=== PATIENT | female | born 1960 | race African-American/Black ===

== ENCOUNTER → 2016-04-29 | Outpatient (CLI) | payer BC ==
[~2016-04-29] MED LIST: ISOVUE-370 76% 100ML VIAL (Q9967) As Ordered ONE
--- NOTE | 2016-04-29 16:27 | REP ---
CT HEAD WITHOUT AND WITH CONTRAST: HISTORY: Dizziness. CONTRAST: Isovue-370 75 mL. There is no intraparenchymal hemorrhage, mass or midline shift. There is no abnormal enhancement. The ventricular system is normal in appearance. There is no extracerebral collection. There is a possible 3 mm aneurysm involving the proximal right middle cerebral artery. The visualized sinuses are clear. IMPRESSION: There is a possible 3 mm right middle cerebral artery aneurysm. MRA of the brain is recommended for further evaluation. Signed by Andriy Flores MD 04/29/2016 04:31 P
== END ==
LOC: M RAD 10:52
PROVIDERS: ATTEND Physician Assistant
DX: R42 Dizziness and giddiness (principal); R93.0 Abnormal findings on diagnostic imaging of skull and head, not elsewhere classified
CPT/HCPCS: 70470; Q9967

== ENCOUNTER → 2016-05-05 | Outpatient (CLI) | payer BC ==
--- NOTE | 2016-05-06 08:29 | REP ---
MRA BRAIN WITHOUT CONTRAST: HISTORY: Dizziness. 3D [id number] MR angiography was performed at the level of the [place]. An aneurysm is present arising from the right middle cerebral artery trifurcation. The aneurysm measures 3 x 2.5 mm. The aneurysm projects inferior from the right middle cerebral artery trifurcation. There is no other aneurysm or arteriovenous malformation. There are no atherosclerotic lesions. The P1 segments of the posterior cerebral arteries are hypoplastic. Major intracranial vessels are patent. The vertebral arteries are equal in size. 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 Signed by Andriy Flores MD 05/06/2016 08:34 A
--- NOTE | 2016-05-06 08:32 | REP ---
MRI BRAIN WITHOUT AND WITH CONTRAST: HISTORY: Dizziness. CONTRAST: ProHance 19 mL. COMPARISON: CT 04/29/2016. Several punctate areas of increased signal intensity on T2-weighted images are present in the periventricular and subcortical white matter. This represents small vessel ischemic disease. There is no intraparenchymal hemorrhage, infarct, mass or midline shift. There is no abnormal enhancement. The ventricular system is normal in appearance. There is no extracerebral collection. IMPRESSION: Minimal small vessel ischemic disease. Signed by Andriy Flores MD 05/06/2016 08:34 A
== END ==
LOC: M RAD 17:19
PROVIDERS: ATTEND Physician Assistant
DX: R42 Dizziness and giddiness (principal)
CPT/HCPCS: 70544; 70553; A9576

== ENCOUNTER → 2016-05-12 | Outpatient (CLI) | payer BC ==
[2016-05-12 11:31] LABS: BASO # 0.1 K/mm3 (0.0-0.2); BASO % 1.4 % (0.0-1.0); EOS # 0.1 K/mm3 (0.0-0.50); EOS % 1.4 % (0.0-3.0); LARGE UNSTAINED CELL # 0.1 K/mm3 (0.0-0.4); LARGE UNSTAINED CELL % 1.8 % (0.0-4.0); LYMPH # 1.4 K/mm3 (1.5-4.5); LYMPH % 30.5 % (24.0-44.0); MEAN CORPUSCULAR HEMOGLOBIN 27.7 pg (27.0-33.0); MEAN CORPUSCULAR HGB CONC 33.2 g/dl (32.0-36.5); MEAN CORPUSCULAR VOLUME 83.5 fl (80.0-96.0); MONO # 0.3 K/mm3 (0.0-0.8); MONO % 6.2 % (0.0-5.0); NEUTROPHILS # 2.6 K/mm3 (1.8-7.7); NEUTROPHILS % 58.7 % (36.0-66.0); PLATELET COUNT, AUTOMATED 262 k/mm3 (150-450); RED CELL DISTRIBUTION WIDTH 15.3 % (11.5-14.5); WHITE BLOOD COUNT 4.4 K/mm3 (4.0-10.0)
[2016-05-12 12:02] LABS: ERYTHROCYTE SEDIMENTATION RATE 41 mm/hr (0-30)
[2016-05-12 12:07] LABS: ALBUMIN/GLOBULIN RATIO 1.18 (1.00-1.93); ALKALINE PHOSPHATASE 94 U/L (45-117); ALT/SGPT 27 U/L (12-78); ANION GAP 8 MEQ/L (8-16); AST/SGOT 12 U/L (15-37); BILIRUBIN,TOTAL 0.3 MG/DL (0.2-1.0); BLOOD UREA NITROGEN 9 MG/DL (7-18); CALCIUM LEVEL 9.4 MG/DL (8.5-10.1); CARBON DIOXIDE LEVEL 30 MEQ/L (21-32); CHLORIDE LEVEL 106 MEQ/L (98-107); CREATININE FOR GFR 0.65 MG/DL (0.55-1.02); GLOMERULAR FILTRATION RATE > 60.0 (>51); GLUCOSE, FASTING 99 MG/DL (70-105); POTASSIUM SERUM 4.1 MEQ/L (3.5-5.1); SODIUM LEVEL 144 MEQ/L (136-145); TOTAL PROTEIN 7.4 GM/DL (6.4-8.2)
== END ==
LOC: M LAB 10:45
PROVIDERS: ATTEND Psychiatry & Neurology Neurology
DX: R51 Headache (principal)